=== PATIENT | male | born 1975 | race Caucasian/White ===

== ENCOUNTER 2019-11-06 06:08 | Inpatient (IN) | payer BC ==
[~2019-11-06] VITALS: Ht 189.2 cm; Wt 109.9 kg
[2019-11-06 06:24] LABS: BASOPHILS # (AUTO) 0.1 X10'3 (0-0.2); BASOPHILS % (AUTO) 0.5 % (0-1); EOSINOPHILS % (AUTO) 0.2 % (0-6); HEMATOCRIT 48.3 % (42.0-52.0); HEMOGLOBIN 16.3 g/dl (14.0-17.9); LYMPHOCYTES # (AUTO) 1.5 X10'3 (1.1-4.8); LYMPHOCYTES % (AUTO) 6.8 % (21-51); MEAN CORPUSCULAR HEMOGLOBIN 31.1 PG (27.0-31.0); MEAN CORPUSCULAR HGB CONC 33.7 g/dL (33.0-36.5); MEAN CORPUSCULAR VOLUME 92.1 FL (78-98); MEAN PLATELET VOLUME 7.9 FL (7.4-10.4); MONOCYTES # (AUTO) 1.1 X10'3 (0-0.9); MONOCYTES % (AUTO) 5.2 % (2-12); NEUTROPHILS % (AUTO) 87.3 % (42-75); PLATELET COUNT 253 X10'3 (140-440); RED BLOOD COUNT 5.24 X10'6 (4.70-6.10); RED CELL DISTRIBUTION WIDTH 13.1 % (11.5-14.5); WHITE BLOOD COUNT 21.8 X10'3 (4.5-11.0)
[2019-11-06] MEDS ORDERED: metoclopramide 5 mg/ml inj IV ONE (06:25)
[2019-11-06] MEDS ORDERED: morphine 4 MG/ML inj SYRINge IV ONE (06:25)
[2019-11-06] MEDS ORDERED: diphenhydrAMINE 50 mg/ml inj IV ONE (06:25)
[2019-11-06] MEDS ORDERED: normal saline 1000ML IV soln IVB ONE ×2 (06:25)
[2019-11-06 06:37] LABS: ALANINE AMINOTRANSFERASE 73 U/L (12-78); ALBUMIN 4.1 G/DL (3.4-5.0); ALBUMIN/GLOBULIN RATIO 1.5 (1.1-1.5); ALKALINE PHOSPHATASE 53 IU/L (46-116); ANION GAP 6 (8-16); ASPARTATE AMINO TRANSFERASE 28 U/L (10-37); BILIRUBIN,TOTAL 0.2 MG/DL (0.1-1.0); BLOOD UREA NITROGEN 13 MG/DL (7-18); BUN/CREATININE RATIO 9.7 (5.4-32.0); CALCIUM 11.1 MG/DL (8.5-10.1); CHLORIDE 103 MMOL/L (99-107); CREATININE 1.34 MG/DL (0.60-1.10); GLUCOSE 175 MG/DL (70-104); SODIUM 136 MMOL/L (135-145); TOTAL PROTEIN 6.8 G/DL (6.4-8.2); eGFR 58 ML/MIN
[2019-11-06 06:41] LABS: POTASSIUM 4.6 MMOL/L (3.5-5.1)
[2019-11-06] MEDS ORDERED: ceFOXitin 2 GM ADDvantage bag 100 ML IV ONE (06:45)
[2019-11-06] MEDS ORDERED: ceFOXitin sod/dextrose 2g/50ml 50 ML IV ONE (06:50)
[2019-11-06 06:53] LABS: LIPASE 7220 U/L (73-393)
[2019-11-06 07:54] LABS: CHOL/HDL RATIO 8.4 (0.00-4.99); CHOLESTEROL 135 MG/DL (0-200); HDL CHOLESTEROL 16 MG/DL (35-60); LDL CHOLESTEROL 66 MG/DL (50-100); TRIGLYCERIDES 364 MG/DL (20-135); TROPONIN I < 0.04 NG/ML (0.0-0.05)
[2019-11-06 08:07] LABS: CLARITY,URINE CLEAR (Clear); COLOR,URINE YELLOW (Yellow); GLUCOSE, URINE NEGATIVE (Neg); KETONES,URINE NEGATIVE (Neg); LEUKOCYTE ESTERASE ,URINE NEGATIVE (Neg); NITRITES, URINE NEGATIVE (Neg); OCCULT BLOOD,URINE TRACE-INTACT (Neg); PH,URINE 5.5 (4.8-8.0); PROTEIN,URINE NEGATIVE (Neg); UROBILINOGEN,URINE 0.2 E.U/dL (0.2-1.0)
[2019-11-06] MEDS ORDERED: NO HOME MEDS (08:18)
[2019-11-06 08:23] LABS: UA COLLECTION TYPE URINAL
[2019-11-06 08:24] LABS: BACTERIA,URINE NONE SEEN /HPF (Neg); MUCUS STRANDS NONE SEEN /LPF (Neg); RBC,URINE 0-2 /HPF (0-2); SQUAMOUS EPITHELIAL CELL,UR FEW /LPF (FEW); WBC,URINE 0-4 /HPF (0-4)
[2019-11-06] MEDS: morphine 4 MG/ML inj SYRINge IV PRN ×2 (08:45→11:19)
[2019-11-06] MEDS ORDERED: potassium CL 10mEq/100ml bag 100 ML IV PRN ×2 (09:00)
[2019-11-06] MEDS ORDERED: morphine 2 MG/ML inj. syringe IV PRN (09:00)
[2019-11-06] MEDS ORDERED: diphenhydrAMINE 25mg capsule PO PRN (09:00)
[2019-11-06] MEDS ORDERED: magnesium 2GM in 50ml NS 50 ML IV PRN (09:00)
[2019-11-06] MEDS ORDERED: metoclopramide 5 mg/ml inj IV PRN (09:00)
[2019-11-06] MEDS ORDERED: acetaminophen 650mg rectal suppository RC PRN (09:00)
[2019-11-06] MEDS ORDERED: mag hydrox/Alum hydrox/simeth 30ml oral suspension PO PRN (09:00)
[2019-11-06] MEDS ORDERED: magnesium Cl slow-release 64mg tablet PO PRN (09:00)
[2019-11-06] MEDS ORDERED: acetaminophen 325mg tablet PO PRN (09:00)
[2019-11-06] MEDS ORDERED: bisacodyl 10mg suppository rectal RC PRN (09:00)
[2019-11-06] MEDS ORDERED: potassium Cl 20 mEq SR tablet PO PRN ×2 (09:00)
[2019-11-06] MEDS ORDERED: diphenhydrAMINE 50 mg/ml inj IV PRN (09:00)
[2019-11-06] MEDS ORDERED: HYDROcodone/acetaminophen 10/325mg tab PO PRN (09:00)
[2019-11-06] MEDS ORDERED: HYDROcodone/acetaminophen 5mg/325mg tablet PO PRN (09:00)
[2019-11-06] MEDS ORDERED: magnesium 4gm in 100ml NS 100 ML IV PRN (09:00)
[2019-11-06] MEDS ORDERED: magnesium hydroxide 30ml (MOM) UD suspension PO PRN (09:00)
[2019-11-06] MEDS ORDERED: ondansetron/PF 4mg/2ml inj IV PRN (09:00)
[2019-11-06] MEDS: fenofibrate 145mg tablet PO SCH (09:10)
[2019-11-06] MEDS: dextrose 5%-normal saline 1,000 ML IV SCH ×2 (09:15→19:55)
[2019-11-06 09:36] LABS: HEMOGLOBIN A1C 5.6 % (4.5-6.2)
[2019-11-06 09:45] LABS: ETHANOL < 0.010 GM/DL (0.0-0.010)
--- NOTE | 2019-11-06 13:48 | NUR ---
Patient in room [facility]. I have received report from AYSHA PEREZ IN ER and had the opportunity to ask questions and assume patient care.
[2019-11-06 14:03] VITALS: BP 123/83
[2019-11-06] MEDS: levoFLOXACIN-Levaquin 750MG/D5 150 ML IV SCH (16:51)
--- NOTE | 2019-11-06 18:30 | NUR ---
Problems reprioritized. Patient report given, questions answered & plan of care reviewed with AYSHA DE LEÓN.
--- NOTE | 2019-11-06 18:53 | NUR ---
Patient in room [facility] 340. I have received report from Raquel OLMSTEAD and had the opportunity to ask questions and assume patient care.
[2019-11-06 19:00] VITALS: BP 111/68
[2019-11-06] MEDS: omega-3 acid ethyl esters 1GM capsule PO SCH (19:54)
[2019-11-06] MEDS: morphine 2 MG/ML inj. syringe IV PRN (19:58)
[2019-11-06] MEDS: K and/or MAG REPLACEMENT MC SCH (20:00)
[2019-11-06] MEDS: metroNIDAZOLE-Flagyl 500mg/NS 100 ML IV SCH ×2 (20:03→23:47)
[2019-11-06] MEDS: heparin, porcine 5000 units/ml vial SQ SCH (20:09)
[2019-11-06] MEDS: pantoprazole 40 MG vial IV SCH (22:32)
[2019-11-06] MEDS: acetaminophen 325mg tablet PO PRN (22:32)
--- NOTE | 2019-11-06 22:39 | NUR ---
Patient states that he has a DRUMMOND now since taking the morphine. Gave tylenol hoping that will help.
[2019-11-07] VITALS: BP 106/69
[2019-11-07 00:44] LABS: URINE AMPHETAMINE SCREEN NEGATIVE (Neg); URINE BARBITUATE SCREEN NEGATIVE (Neg); URINE BENZODIAZEPINES SCREEN NEGATIVE (Neg); URINE CANNABINOID SCREEN NEGATIVE (Neg); URINE COCAINE SCREEN NEGATIVE (Neg); URINE METHADONE SCREEN NEGATIVE (Neg); URINE OPIATE SCREEN POSITIVE (Neg); URINE PHENCYCLIDINE SCREEN NEGATIVE (Neg)
[2019-11-07 00:47] LABS: CLARITY,URINE SLIGHTLY CLOUDY (Clear); COLOR,URINE YELLOW (Yellow); GLUCOSE, URINE NEGATIVE (Neg); KETONES,URINE NEGATIVE (Neg); LEUKOCYTE ESTERASE ,URINE NEGATIVE (Neg); NITRITES, URINE NEGATIVE (Neg); OCCULT BLOOD,URINE SMALL (Neg); PROTEIN,URINE TRACE mg/dl (Neg); UROBILINOGEN,URINE 0.2 E.U/dL (0.2-1.0)
[2019-11-07 00:57] LABS: UA COLLECTION TYPE CLN CATCH MIDSTREAM
[2019-11-07 00:59] LABS: RBC,URINE 0-2 /HPF (0-2); WBC,URINE 0-4 /HPF (0-4)
[2019-11-07 01:00] LABS: BACTERIA,URINE NONE SEEN /HPF (Neg); MUCUS STRANDS FEW /LPF (Neg); SQUAMOUS EPITHELIAL CELL,UR MODERATE /LPF (FEW)
[2019-11-07] MEDS: dextrose 5%-normal saline 1,000 ML IV SCH ×3 (01:00→17:22)
[2019-11-07] MEDS: morphine 2 MG/ML inj. syringe IV PRN ×3 (01:15→10:14)
--- NOTE | 2019-11-07 01:23 | NUR ---
Please note the reason that IV morphine is being given for pain is that patient is NPO status. The norco has narcotic in it which may upset his stomach more due to being NPO.
[2019-11-07 05:05] LABS: BASOPHILS % (AUTO) 0.1 % (0-1); EOSINOPHILS # (AUTO) 0.1 X10'3 (0-0.9); EOSINOPHILS % (AUTO) 0.7 % (0-6); HEMATOCRIT 44.6 % (42.0-52.0); HEMOGLOBIN 14.8 g/dl (14.0-17.9); LYMPHOCYTES # (AUTO) 1.3 X10'3 (1.1-4.8); MEAN CORPUSCULAR HEMOGLOBIN 30.8 PG (27.0-31.0); MEAN CORPUSCULAR HGB CONC 33.2 g/dL (33.0-36.5); MEAN CORPUSCULAR VOLUME 92.7 FL (78-98); MEAN PLATELET VOLUME 8.6 FL (7.4-10.4); MONOCYTES # (AUTO) 1.4 X10'3 (0-0.9); MONOCYTES % (AUTO) 8.9 % (2-12); NEUTROPHILS # (AUTO) 13.3 X10'3 (1.8-7.7); NEUTROPHILS % (AUTO) 82.3 % (42-75); PLATELET COUNT 178 X10'3 (140-440); RED BLOOD COUNT 4.81 X10'6 (4.70-6.10); RED CELL DISTRIBUTION WIDTH 13.2 % (11.5-14.5); WHITE BLOOD COUNT 16.2 X10'3 (4.5-11.0)
[2019-11-07 05:20] LABS: ALANINE AMINOTRANSFERASE 40 U/L (12-78); ALBUMIN/GLOBULIN RATIO 1.1 (1.1-1.5); ALKALINE PHOSPHATASE 36 IU/L (46-116); ANION GAP 6 (8-16); ASPARTATE AMINO TRANSFERASE 19 U/L (10-37); BILIRUBIN,TOTAL 0.7 MG/DL (0.1-1.0); BLOOD UREA NITROGEN 12 MG/DL (7-18); BUN/CREATININE RATIO 10.7 (5.4-32.0); CALCIUM 8.6 MG/DL (8.5-10.1); CHLORIDE 105 MMOL/L (99-107); CHOL/HDL RATIO 5.7 (0.00-4.99); CHOLESTEROL 109 MG/DL (0-200); CREATININE 1.12 MG/DL (0.60-1.10); GLUCOSE 113 MG/DL (70-104); HDL CHOLESTEROL 19 MG/DL (35-60); LDL CHOLESTEROL 64 MG/DL (50-100); MAGNESIUM 1.6 MG/DL (1.5-2.4); PHOSPHORUS 3.1 MG/DL (2.3-4.5); SODIUM 137 MMOL/L (135-145); TOTAL CARBON DIOXIDE 26.5 MMOL/L (24-32); TOTAL PROTEIN 5.7 G/DL (6.4-8.2); TRIGLYCERIDES 144 MG/DL (20-135); eGFR 71 ML/MIN
[2019-11-07 05:30] LABS: LIPASE 2832 U/L (73-393)
--- NOTE | 2019-11-07 06:49 | NUR ---
Report to Nan OLSMTEAD.
[2019-11-07] MEDS: pantoprazole 40 MG vial IV SCH ×2 (07:24→20:58)
[2019-11-07] MEDS: K and/or MAG REPLACEMENT MC SCH ×2 (07:24→20:00)
[2019-11-07] MEDS: metroNIDAZOLE-Flagyl 500mg/NS 100 ML IV SCH ×3 (07:24→23:43)
[2019-11-07] MEDS: omega-3 acid ethyl esters 1GM capsule PO SCH ×2 (07:26→20:52)
[2019-11-07] MEDS: fenofibrate 145mg tablet PO SCH (07:26)
[2019-11-07 07:30] VITALS: BP 117/71
[2019-11-07] MEDS: heparin, porcine 5000 units/ml vial SQ SCH ×2 (07:33→20:55)
[2019-11-07] MEDS: levoFLOXACIN-Levaquin 750MG/D5 150 ML IV SCH (09:09)
[2019-11-07 11:00] VITALS: BP 119/76
[2019-11-07] MEDS ORDERED: HYDROmorphone inj. 0.5 MG/0.5 ML DISP.SYRIN IV PRN (15:05)
[2019-11-07] MEDS: HYDROmorphone 1 mg/ml syringe IV PRN ×4 (15:37→23:43)
--- NOTE | 2019-11-07 16:36 | NUR ---
PAGER ID: [phone] MESSAGE: James Fang 340B: patient requesting routine stool softener. thanks mario [phone]
--- NOTE | 2019-11-07 18:15 | NUR ---
Patient in room [facility]. I have received report from Nan OLMSTEAD and had the opportunity to ask questions and assume patient care.
--- NOTE | 2019-11-07 18:26 | NUR ---
Problems reprioritized. Patient report given, questions answered & plan of care reviewed with AYSHA DE LEÓN.
[2019-11-07 19:00] VITALS: BP 125/81
[2019-11-07] MEDS: polyethylene glycol 3350 17gm powd pack PO SCH (21:05)
[2019-11-08] VITALS: BP 121/70
[2019-11-08] MEDS: dextrose 5%-normal saline 1,000 ML IV SCH ×4 (01:00→23:49)
[2019-11-08] MEDS: HYDROmorphone 1 mg/ml syringe IV PRN ×10 (02:16→22:37)
[2019-11-08] MEDS: polyethylene glycol 3350 17gm powd pack PO SCH (02:16)
[2019-11-08 05:31] LABS: BASOPHILS % (AUTO) 0.2 % (0-1); EOSINOPHILS # (AUTO) 0.2 X10'3 (0-0.9); EOSINOPHILS % (AUTO) 1.2 % (0-6); HEMATOCRIT 42.3 % (42.0-52.0); HEMOGLOBIN 14.1 g/dl (14.0-17.9); LYMPHOCYTES # (AUTO) 1.2 X10'3 (1.1-4.8); LYMPHOCYTES % (AUTO) 6.6 % (21-51); MEAN CORPUSCULAR HEMOGLOBIN 30.8 PG (27.0-31.0); MEAN CORPUSCULAR HGB CONC 33.4 g/dL (33.0-36.5); MEAN CORPUSCULAR VOLUME 92.3 FL (78-98); MEAN PLATELET VOLUME 8.7 FL (7.4-10.4); MONOCYTES # (AUTO) 1.8 X10'3 (0-0.9); MONOCYTES % (AUTO) 9.5 % (2-12); NEUTROPHILS # (AUTO) 15.6 X10'3 (1.8-7.7); NEUTROPHILS % (AUTO) 82.5 % (42-75); PLATELET COUNT 180 X10'3 (140-440); RED BLOOD COUNT 4.59 X10'6 (4.70-6.10); RED CELL DISTRIBUTION WIDTH 13.2 % (11.5-14.5); WHITE BLOOD COUNT 18.9 X10'3 (4.5-11.0)
[2019-11-08 05:45] LABS: ALANINE AMINOTRANSFERASE 30 U/L (12-78); ALBUMIN/GLOBULIN RATIO 0.9 (1.1-1.5); ALKALINE PHOSPHATASE 42 IU/L (46-116); ANION GAP 9 (8-16); ASPARTATE AMINO TRANSFERASE 17 U/L (10-37); BILIRUBIN,TOTAL 0.7 MG/DL (0.1-1.0); BLOOD UREA NITROGEN 11 MG/DL (7-18); BUN/CREATININE RATIO 10.6 (5.4-32.0); CALCIUM 8.2 MG/DL (8.5-10.1); CHLORIDE 103 MMOL/L (99-107); CREATININE 1.04 MG/DL (0.60-1.10); GLUCOSE 104 MG/DL (70-104); LIPASE 471 U/L (73-393); MAGNESIUM 1.8 MG/DL (1.5-2.4); POTASSIUM 3.7 MMOL/L (3.5-5.1); SODIUM 136 MMOL/L (135-145); TOTAL CARBON DIOXIDE 24.1 MMOL/L (24-32); TOTAL PROTEIN 6.3 G/DL (6.4-8.2); eGFR 78 ML/MIN
--- NOTE | 2019-11-08 06:30 | NUR ---
Problems reprioritized. Patient report given, questions answered & plan of care reviewed with Araceli OLMSTEAD.
--- NOTE | 2019-11-08 07:03 | NUR ---
Patient in room [facility] 340. I have received report from María lEena OLMSTEAD and had the opportunity to ask questions and assume patient care.
[2019-11-08] MEDS: pantoprazole 40 MG vial IV SCH ×2 (07:32→19:17)
[2019-11-08] MEDS: metroNIDAZOLE-Flagyl 500mg/NS 100 ML IV SCH ×3 (07:32→23:49)
[2019-11-08] MEDS: levoFLOXACIN-Levaquin 750MG/D5 150 ML IV SCH (07:32)
[2019-11-08] MEDS: diatr meglu/diatrizoate 30ml oral sol.-(3 dose) bottle PO SCH ×3 (07:32→16:52)
[2019-11-08] MEDS: docusate sod 100mg capsule PO SCH ×2 (07:33→19:23)
[2019-11-08 08:00] VITALS: BP 118/72
[2019-11-08] MEDS: K and/or MAG REPLACEMENT MC SCH ×2 (08:00→20:00)
[2019-11-08] MEDS: heparin, porcine 5000 units/ml vial SQ SCH ×2 (08:00→19:17)
[2019-11-08 11:00] VITALS: BP 135/80
[2019-11-08 11:35] VITALS: BP 93/58
[2019-11-08] MEDS: fenofibrate 145mg tablet PO SCH (12:51)
[2019-11-08] MEDS: omega-3 acid ethyl esters 1GM capsule PO SCH ×2 (12:51→20:39)
[2019-11-08] MEDS: nicotine 21mg patch - 24 hr TD SCH (14:01)
[2019-11-08] MEDS ORDERED: iohexol 300mg/ml 100ml inj. ONE (16:50)
--- NOTE | 2019-11-08 18:00 | NUR ---
Patient in room [facility] 347. I have received report from Araceli OLMSTEAD and had the opportunity to ask questions and assume patient care.
--- NOTE | 2019-11-08 18:49 | NUR ---
Problems reprioritized. Patient report given, questions answered & plan of care reviewed with Carli OLMSTEAD.
[2019-11-08 19:00] VITALS: BP 132/75
[2019-11-08 23:49] VITALS: BP 134/70
[2019-11-08] MEDS: acetaminophen 325mg tablet PO PRN (23:59)
[2019-11-09] MEDS: HYDROmorphone 1 mg/ml syringe IV PRN ×4 (03:19→10:53)
[2019-11-09 05:58] LABS: BASOPHILS % (AUTO) 0.1 % (0-1); EOSINOPHILS # (AUTO) 0.2 X10'3 (0-0.9); EOSINOPHILS % (AUTO) 1.3 % (0-6); HEMATOCRIT 39.2 % (42.0-52.0); LYMPHOCYTES # (AUTO) 1.1 X10'3 (1.1-4.8); LYMPHOCYTES % (AUTO) 6.6 % (21-51); MEAN CORPUSCULAR HEMOGLOBIN 30.8 PG (27.0-31.0); MEAN CORPUSCULAR HGB CONC 33.3 g/dL (33.0-36.5); MEAN CORPUSCULAR VOLUME 92.5 FL (78-98); MEAN PLATELET VOLUME 8.6 FL (7.4-10.4); MONOCYTES # (AUTO) 1.7 X10'3 (0-0.9); MONOCYTES % (AUTO) 10.7 % (2-12); NEUTROPHILS # (AUTO) 13.1 X10'3 (1.8-7.7); NEUTROPHILS % (AUTO) 81.3 % (42-75); PLATELET COUNT 165 X10'3 (140-440); RED BLOOD COUNT 4.23 X10'6 (4.70-6.10); RED CELL DISTRIBUTION WIDTH 13.4 % (11.5-14.5); WHITE BLOOD COUNT 16.1 X10'3 (4.5-11.0)
[2019-11-09 06:18] LABS: ALBUMIN 2.6 G/DL (3.4-5.0); ALBUMIN/GLOBULIN RATIO 0.8 (1.1-1.5); ALKALINE PHOSPHATASE 43 IU/L (46-116); ANION GAP 6 (8-16); ASPARTATE AMINO TRANSFERASE 15 U/L (10-37); BILIRUBIN,TOTAL 0.6 MG/DL (0.1-1.0); BLOOD UREA NITROGEN 9 MG/DL (7-18); BUN/CREATININE RATIO 8.6 (5.4-32.0); CHLORIDE 103 MMOL/L (99-107); CREATININE 1.05 MG/DL (0.60-1.10); GLUCOSE 109 MG/DL (70-104); LIPASE 259 U/L (73-393); PHOSPHORUS 1.8 MG/DL (2.3-4.5); POTASSIUM 3.6 MMOL/L (3.5-5.1); SODIUM 135 MMOL/L (135-145); TOTAL PROTEIN 5.9 G/DL (6.4-8.2); eGFR 77 ML/MIN
--- NOTE | 2019-11-09 06:22 | NUR ---
Problems reprioritized. Patient report given, questions answered & plan of care reviewed with Elizabeth OLMSTEAD.
[2019-11-09 06:33] LABS: ALANINE AMINOTRANSFERASE 23 U/L (12-78)
--- NOTE | 2019-11-09 07:27 | NUR ---
Patient in room [facility] 347. I have received report from Carli OLMSTEAD and had the opportunity to ask questions and assume patient care.
[2019-11-09] MEDS: heparin, porcine 5000 units/ml vial SQ SCH ×2 (07:41→08:13)
--- NOTE | 2019-11-09 07:43 | NUR ---
Dr. Guardado came to see patient. Per Dr. Guardado no surgery today and patient may have clear liquid
[2019-11-09 08:00] VITALS: BP 126/72
[2019-11-09] MEDS: docusate sod 100mg capsule PO SCH ×2 (08:13→20:02)
[2019-11-09] MEDS: pantoprazole 40 MG vial IV SCH ×2 (08:13→19:55)
[2019-11-09] MEDS: fenofibrate 145mg tablet PO SCH (08:13)
[2019-11-09] MEDS: nicotine 21mg patch - 24 hr TD SCH (08:14)
[2019-11-09] MEDS: metroNIDAZOLE-Flagyl 500mg/NS 100 ML IV SCH (08:14)
[2019-11-09] MEDS: omega-3 acid ethyl esters 1GM capsule PO SCH (08:27)
--- NOTE | 2019-11-09 10:43 | NUR ---
Report given to Judd OLMSTEAD
--- NOTE | 2019-11-09 10:49 | NUR ---
Patient in room [facility] 345. I have received report from Elizabeth and had the opportunity to ask questions and assume patient care.
[2019-11-09] MEDS: levoFLOXACIN-Levaquin 750MG/D5 150 ML IV SCH (10:58)
[2019-11-09] MEDS: K and/or MAG REPLACEMENT MC SCH ×2 (11:08→19:57)
--- NOTE | 2019-11-09 11:43 | NUR ---
Judd [id number] Re: James Fang Pt is now clear liquid diet, can he start PO pain meds
[2019-11-09] MEDS: dextrose 5%-normal saline 1,000 ML IV SCH ×2 (11:50→21:48)
[2019-11-09] MEDS: HYDROcodone/acetaminophen 5mg/325mg tablet PO PRN ×3 (12:20→19:54)
[2019-11-09] MEDS: Neutra Phos packet PO SCH ×2 (12:20→20:02)
--- NOTE | 2019-11-09 13:41 | NUR ---
agree with assessment Addendum: 11/09/19 at 1341 by Judd Quintana RN Amended: Links added.
[2019-11-09] MEDS: metroNIDAZOLE 500mg tablet PO SCH (15:31)
--- NOTE | 2019-11-09 17:59 | NUR ---
Problems reprioritized. Patient report given, questions answered & plan of care reviewed with Zach.
[2019-11-09 18:00] VITALS: BP 128/70
--- NOTE | 2019-11-09 18:00 | NUR ---
Patient in room [facility] 345. I have received report from Judd OLMSTEAD and had the opportunity to ask questions and assume patient care.
[2019-11-09] MEDS: OMEGA-3/DHA/EPA/FISH OIL 1 EACH CAPSULE.DR PO SCH (19:54)
[2019-11-09] MEDS: polyethylene glycol 3350 17gm powd pack PO SCH (20:02)
[2019-11-09] MEDS ORDERED: heparin, porcine 5000 units/ml vial SQ ONE (23:55)
[2019-11-10] VITALS: BP 127/76
[2019-11-10] MEDS: metroNIDAZOLE 500mg tablet PO SCH ×3 (00:01→16:09)
[2019-11-10] MEDS: HYDROcodone/acetaminophen 5mg/325mg tablet PO PRN ×2 (00:01→21:25)
--- NOTE | 2019-11-10 05:11 | NUR ---
Patient complained of stomach discomfort, patient states " I believe that it's coming from the IV fluids I'm getting, I can feel it when I get the saline flush as well and I get shooting pain in my stomach. Please hold fluids". Fluids held for 4 hours and patient stated relief without stomach pain and discomfort. Dr. Vinh alex.
[2019-11-10 05:14] LABS: BASOPHILS % (AUTO) 0.2 % (0-1); EOSINOPHILS # (AUTO) 0.2 X10'3 (0-0.9); EOSINOPHILS % (AUTO) 1.7 % (0-6); HEMATOCRIT 38.3 % (42.0-52.0); HEMOGLOBIN 12.9 g/dl (14.0-17.9); LYMPHOCYTES # (AUTO) 1.1 X10'3 (1.1-4.8); LYMPHOCYTES % (AUTO) 7.4 % (21-51); MEAN CORPUSCULAR HEMOGLOBIN 31.2 PG (27.0-31.0); MEAN CORPUSCULAR HGB CONC 33.7 g/dL (33.0-36.5); MEAN CORPUSCULAR VOLUME 92.7 FL (78-98); MEAN PLATELET VOLUME 8.3 FL (7.4-10.4); MONOCYTES # (AUTO) 1.7 X10'3 (0-0.9); MONOCYTES % (AUTO) 11.2 % (2-12); NEUTROPHILS # (AUTO) 11.8 X10'3 (1.8-7.7); NEUTROPHILS % (AUTO) 79.5 % (42-75); PLATELET COUNT 177 X10'3 (140-440); RED BLOOD COUNT 4.14 X10'6 (4.70-6.10); RED CELL DISTRIBUTION WIDTH 13.2 % (11.5-14.5); WHITE BLOOD COUNT 14.8 X10'3 (4.5-11.0)
[2019-11-10 05:22] LABS: ALANINE AMINOTRANSFERASE 16 U/L (12-78); ALBUMIN 2.5 G/DL (3.4-5.0); ALBUMIN/GLOBULIN RATIO 0.7 (1.1-1.5); ALKALINE PHOSPHATASE 42 IU/L (46-116); ANION GAP 7 (8-16); ASPARTATE AMINO TRANSFERASE 13 U/L (10-37); BILIRUBIN,TOTAL 0.5 MG/DL (0.1-1.0); BLOOD UREA NITROGEN 8 MG/DL (7-18); BUN/CREATININE RATIO 7.2 (5.4-32.0); CALCIUM 8.4 MG/DL (8.5-10.1); CHLORIDE 102 MMOL/L (99-107); CREATININE 1.11 MG/DL (0.60-1.10); GLUCOSE 104 MG/DL (70-104); MAGNESIUM 2.1 MG/DL (1.5-2.4); PHOSPHORUS 1.8 MG/DL (2.3-4.5); POTASSIUM 3.8 MMOL/L (3.5-5.1); SODIUM 136 MMOL/L (135-145); TOTAL CARBON DIOXIDE 27.5 MMOL/L (24-32); eGFR 72 ML/MIN
[2019-11-10] MEDS: dextrose 5%-normal saline 1,000 ML IV SCH ×3 (06:56→21:09)
[2019-11-10] MEDS: docusate sod 100mg capsule PO SCH ×2 (07:43→21:06)
[2019-11-10] MEDS: fenofibrate 145mg tablet PO SCH (07:43)
[2019-11-10] MEDS: Neutra Phos packet PO SCH ×3 (07:43→21:05)
[2019-11-10] MEDS: nicotine 21mg patch - 24 hr TD SCH ×2 (07:44→10:58)
[2019-11-10] MEDS: pantoprazole 40 MG vial IV SCH ×2 (07:44→21:01)
[2019-11-10] MEDS: heparin, porcine 5000 units/ml vial SQ SCH ×2 (07:44→21:02)
[2019-11-10] MEDS: OMEGA-3/DHA/EPA/FISH OIL 1 EACH CAPSULE.DR PO SCH ×2 (07:45→21:00)
[2019-11-10 08:00] VITALS: BP 119/73
[2019-11-10] MEDS: K and/or MAG REPLACEMENT MC SCH ×2 (08:00→20:00)
[2019-11-10] MEDS: levoFLOXACIN 500mg tablet PO SCH (10:54)
[2019-11-10 11:00] VITALS: BP 116/76
[2019-11-10] MEDS ORDERED: levoFLOXACIN 750MG TABLET PO SCH (11:00)
--- NOTE | 2019-11-10 11:05 | NUR ---
Phos 1.8- patient receiving neutra phos packet supplement.
--- NOTE | 2019-11-10 11:05 | NUR ---
Patient still refusing IV fluids- states IV fluids are directly causing stomach discomfort. Will make MD aware.
--- NOTE | 2019-11-10 12:10 | NUR ---
Initial: Pt admit with gallstone pancreatitis and sepsis from cholecystitis. Lipase 7220 on admit, currently WNL. Pt with hypertriglyceridemia on admit, started on antihyperlipidemic and TG levels now at 144, almost WNL. Pt possibly to get cholecystectomy for cholecystitis with cholelithiasis per MD notes. Pt previously NPO however was advanced to clear liquid diet yesterday. PO intake up to 100% at breakfast this morning however not able to meet nutrient needs at this time given the nature of the diet. LBM 11/04. Pt receiving routine bowel care and provided first dose of PRN bowel care today. Will continue to follow closely and monitor need for nutrition intervention. Recommendations: 1) Advance to heart healthy diet as medically indicated 2) Monitor need for ONS 3) Routine bowel care 4) Wt per rx Addendum: 11/10/19 at [address] Amended: Links added.
[2019-11-10 12:14] LABS: LIPASE 211 U/L (73-393)
--- NOTE | 2019-11-10 14:21 | NUR ---
Page sent to MD Ayala PAGER ID: [phone] MESSAGE: MaryA Leoncio Ramirez- patient would like a sleep aid for tonight, also refusing IV fluids, can we d/c? Ernestina [phone]
--- NOTE | 2019-11-10 14:31 | NUR ---
MD aware of patient refusing IV fluids. Okay to chart patient refusing IV fluids.
--- NOTE | 2019-11-10 16:32 | NUR ---
Patient is still refusing to restart IV fluids.
[2019-11-10 18:00] VITALS: BP 108/69
--- NOTE | 2019-11-10 18:10 | NUR ---
Problems reprioritized. Patient report given, questions answered & plan of care reviewed with Leena OLMSTEAD.
--- NOTE | 2019-11-10 18:10 | NUR ---
Patient in room [facility] 345. I have received report from Ernestina OLMSTEAD and had the opportunity to ask questions and assume patient care.
[2019-11-10] MEDS ORDERED: ringers solution, lacted 1,000 ML IV ONE (18:20)
[2019-11-10] MEDS: polyethylene glycol 3350 17gm powd pack PO SCH (21:00)
[2019-11-10] MEDS: lactobacillus rhamnosus 10,000 MMU CELLS/CAPSULE PO SCH (21:01)
[2019-11-10] MEDS: Melatonin 3mg tablet PO SCH (21:04)
[2019-11-11] VITALS (19 sets, daily range): BP systolic 93–135; BP diastolic 49–76
[2019-11-11] MEDS: metroNIDAZOLE 500mg tablet PO SCH ×4 (00:27→22:12)
[2019-11-11] MEDS: HYDROcodone/acetaminophen 5mg/325mg tablet PO PRN ×2 (01:57→09:07)
[2019-11-11 05:20] LABS: BASOPHILS % (AUTO) 0.3 % (0-1); EOSINOPHILS # (AUTO) 0.2 X10'3 (0-0.9); EOSINOPHILS % (AUTO) 1.7 % (0-6); HEMATOCRIT 37.4 % (42.0-52.0); HEMOGLOBIN 12.5 g/dl (14.0-17.9); LYMPHOCYTES # (AUTO) 0.9 X10'3 (1.1-4.8); LYMPHOCYTES % (AUTO) 6.5 % (21-51); MEAN CORPUSCULAR HEMOGLOBIN 30.7 PG (27.0-31.0); MEAN CORPUSCULAR HGB CONC 33.3 g/dL (33.0-36.5); MEAN CORPUSCULAR VOLUME 92.3 FL (78-98); MEAN PLATELET VOLUME 8.1 FL (7.4-10.4); MONOCYTES # (AUTO) 1.6 X10'3 (0-0.9); MONOCYTES % (AUTO) 11.2 % (2-12); NEUTROPHILS # (AUTO) 11.5 X10'3 (1.8-7.7); NEUTROPHILS % (AUTO) 80.3 % (42-75); PARTIAL THROMBOPLASTIN TIME 35 SECONDS (22-32); PLATELET COUNT 198 X10'3 (140-440); RED BLOOD COUNT 4.06 X10'6 (4.70-6.10); RED CELL DISTRIBUTION WIDTH 13.2 % (11.5-14.5); WHITE BLOOD COUNT 14.3 X10'3 (4.5-11.0)
[2019-11-11 05:37] LABS: ALANINE AMINOTRANSFERASE 23 U/L (12-78); ALBUMIN 2.5 G/DL (3.4-5.0); ALBUMIN/GLOBULIN RATIO 0.7 (1.1-1.5); ALKALINE PHOSPHATASE 46 IU/L (46-116); ANION GAP 7 (8-16); ASPARTATE AMINO TRANSFERASE 15 U/L (10-37); BILIRUBIN,TOTAL 0.4 MG/DL (0.1-1.0); BLOOD UREA NITROGEN 10 MG/DL (7-18); BUN/CREATININE RATIO 9.6 (5.4-32.0); CALCIUM 8.2 MG/DL (8.5-10.1); CHLORIDE 103 MMOL/L (99-107); CREATININE 1.04 MG/DL (0.60-1.10); GLUCOSE 121 MG/DL (70-104); MAGNESIUM 2.4 MG/DL (1.5-2.4); POTASSIUM 3.6 MMOL/L (3.5-5.1); SODIUM 136 MMOL/L (135-145); TOTAL CARBON DIOXIDE 26.1 MMOL/L (24-32); eGFR 78 ML/MIN
[2019-11-11] MEDS ORDERED: famotidine 20mg tablet PO ONE (06:00)
--- NOTE | 2019-11-11 06:20 | NUR ---
Problems reprioritized. Patient report given, questions answered & plan of care reviewed with Ernestina OLMSTEAD.
[2019-11-11] MEDS: heparin, porcine 5000 units/ml vial SQ SCH ×2 (07:04→19:29)
[2019-11-11] MEDS: fenofibrate 145mg tablet PO SCH (07:04)
[2019-11-11] MEDS: lactobacillus rhamnosus 10,000 MMU CELLS/CAPSULE PO SCH ×2 (07:19→19:26)
[2019-11-11] MEDS: docusate sod 100mg capsule PO SCH ×2 (07:19→19:21)
[2019-11-11] MEDS: Neutra Phos packet PO SCH ×3 (07:20→20:56)
[2019-11-11] MEDS: OMEGA-3/DHA/EPA/FISH OIL 1 EACH CAPSULE.DR PO SCH ×2 (07:22→19:26)
[2019-11-11] MEDS: nicotine 21mg patch - 24 hr TD SCH (08:00)
[2019-11-11] MEDS: pantoprazole 40 MG vial IV SCH ×2 (08:00→19:27)
[2019-11-11] MEDS: K and/or MAG REPLACEMENT MC SCH ×2 (08:00→20:00)
[2019-11-11] MEDS: levoFLOXACIN 500mg tablet PO SCH (10:42)
[2019-11-11] MEDS ORDERED: morphine 2 MG/ML inj. syringe IV PRN (11:55)
[2019-11-11] MEDS ORDERED: hydrALAZINE 20mg/ml inj. IV PRN (11:55)
[2019-11-11] MEDS ORDERED: morphine 4 MG/ML inj SYRINge IV PRN (11:55)
[2019-11-11] MEDS ORDERED: labetalol 20mg/4ml (5mg/ml) syringe IV PRN (11:55)
[2019-11-11] MEDS ORDERED: fentaNYL/PF 50MCG/1 ML 2ML syringe IV PRN ×2 (11:55)
[2019-11-11] MEDS ORDERED: ondansetron/PF 4mg/2ml inj IV PRN (11:55)
[2019-11-11] MEDS ORDERED: ringers solution, lacted 1,000 ML IV SCH (11:55)
[2019-11-11] MEDS ORDERED: fentaNYL/PF 50MCG/1 ML 2ML syringe ONE (12:48)
[2019-11-11] MEDS ORDERED: dexamethasone sod phosphate 4mg/ml inj. ONE (12:49)
[2019-11-11] MEDS ORDERED: LIDOcaine 2% (20mg/ml) 5ml vial ONE (12:49)
[2019-11-11] MEDS ORDERED: propofol inj 20 ML IV ONE (12:49)
[2019-11-11] MEDS ORDERED: ondansetron/PF 4mg/2ml inj ONE (12:49)
[2019-11-11] MEDS ORDERED: neostigmine methylsulfate 1 MG/ML 10ml vial ONE (12:49)
[2019-11-11] MEDS ORDERED: rocuronium 10mg/ml inj IV ONE (12:49)
[2019-11-11] MEDS ORDERED: glycopyrrolate 0.2mg/ml inj ONE (12:49)
[2019-11-11] MEDS ORDERED: midazolam 2 mg/2 ml injection ONE (12:49)
[2019-11-11] MEDS ORDERED: sevoflurane 250ml liquid IH ONE (12:50)
[2019-11-11] MEDS ORDERED: BUPIVAcaine/PF 2.5 mg/ml (0.25%) 30ml vial ONE (12:59)
[2019-11-11] MEDS: dextrose 5%-normal saline 1,000 ML IV SCH ×2 (13:07→16:08)
--- NOTE | 2019-11-11 13:55 | NUR ---
RECEIVED FROM OR VIA BED ACCOMPANIED BY ANESTHESIOLOGIST DR AHN, REPORT GIVEN. 20 GAUGE PIV R AC PATENT AND RUNNING LR AT 100 ML/HR. BAND AIDS AND SMALL ISLAND DRESSING TO ABDOMEN CDI WITH ZAIDA DRAIN INTACT AND TO DRAINAGE. PT AWAKE AND ALERT AND C/O PAIN AT A LEVEL 10. SKIN PINK AND WARM, VSS, ABD SOFT, LEW.
--- NOTE | 2019-11-11 14:55 | NUR ---
TRANSPORTED TO ROOM VIA BED, REPORT GIVEN. 20 GAUGE PIV R AC PATENT AND RUNNING LR AT 100 ML/HR. BAND AIDS AND SMALL ISLAND DRESSING TO ABDOMEN CDI WITH ZAIDA DRAIN INTACT AND TO DRAINAGE. PT AWAKE AND ALERT AND C/O PAIN AT A LEVEL 15. SKIN PINK AND WARM, VSS, ABD SOFT, LEW. LEFT IN CARE OF MAINFRAME PROGRAMMER ANALYST.
--- NOTE | 2019-11-11 15:04 | NUR ---
Patient arrived from surgery. Received report from Suzi OLMSTEAD. Dressing C/D/I, ZAIDA drain draining serous sanguinous fluids.
[2019-11-11] MEDS: HYDROcodone/acetaminophen 10/325mg tab PO PRN ×2 (17:44→22:10)
--- NOTE | 2019-11-11 18:06 | NUR ---
Problems reprioritized. Patient report given, questions answered & plan of care reviewed with Danii OLMSTEAD.
[2019-11-11] MEDS ORDERED: nicotine 21mg patch - 24 hr TD ONE (19:05)
[2019-11-11] MEDS: polyethylene glycol 3350 17gm powd pack PO SCH (20:56)
[2019-11-11] MEDS: Melatonin 3mg tablet PO SCH (20:56)
--- NOTE | 2019-11-11 21:52 | NUR ---
Post op VS finished partial VS documented in Post-op VS and other portion documented under PCT vs. Addendum: 11/11/19 at 2157 by Danii Peng RN Amended: Links added.
[2019-11-12] VITALS: BP 102/64
[2019-11-12] MEDS: dextrose 5%-normal saline 1,000 ML IV SCH ×2 (02:08→14:01)
[2019-11-12 04:00] VITALS: BP 116/56
[2019-11-12] MEDS: HYDROcodone/acetaminophen 10/325mg tab PO PRN ×3 (04:45→14:13)
--- NOTE | 2019-11-12 06:20 | NUR ---
Problems reprioritized. Patient report given, questions answered & plan of care reviewed with Payton OLMSTEAD. Addendum: 11/12/19 at 0621 by Danii Peng RN Amended: Links added.
--- NOTE | 2019-11-12 06:28 | NUR ---
Patient in room [facility] 345. I have received report from AYSHA Foy and had the opportunity to ask questions and assume patient care.
[2019-11-12] MEDS: K and/or MAG REPLACEMENT MC SCH (07:19)
[2019-11-12] MEDS: Neutra Phos packet PO SCH ×2 (07:30→12:44)
[2019-11-12] MEDS: docusate sod 100mg capsule PO SCH (07:30)
[2019-11-12] MEDS: OMEGA-3/DHA/EPA/FISH OIL 1 EACH CAPSULE.DR PO SCH (07:30)
[2019-11-12] MEDS: metroNIDAZOLE 500mg tablet PO SCH (07:30)
[2019-11-12] MEDS: lactobacillus rhamnosus 10,000 MMU CELLS/CAPSULE PO SCH (07:30)
[2019-11-12] MEDS: pantoprazole 40 MG vial IV SCH (07:30)
[2019-11-12] MEDS: heparin, porcine 5000 units/ml vial SQ SCH (07:31)
[2019-11-12] MEDS: fenofibrate 145mg tablet PO SCH (07:31)
[2019-11-12] MEDS: nicotine 21mg patch - 24 hr TD SCH (07:31)
[2019-11-12 08:20] VITALS: BP 102/69
[2019-11-12 11:00] VITALS: BP 99/63
[2019-11-12] MEDS: levoFLOXACIN 500mg tablet PO SCH (11:02)
[2019-11-12 12:25] LABS: BASOPHILS % (AUTO) 0.3 % (0-1); EOSINOPHILS # (AUTO) 0.1 X10'3 (0-0.9); EOSINOPHILS % (AUTO) 0.9 % (0-6); HEMATOCRIT 38.3 % (42.0-52.0); HEMOGLOBIN 12.5 g/dl (14.0-17.9); LYMPHOCYTES # (AUTO) 1.1 X10'3 (1.1-4.8); LYMPHOCYTES % (AUTO) 8.3 % (21-51); MEAN CORPUSCULAR HEMOGLOBIN 30.2 PG (27.0-31.0); MEAN CORPUSCULAR HGB CONC 32.5 g/dL (33.0-36.5); MEAN CORPUSCULAR VOLUME 92.8 FL (78-98); MEAN PLATELET VOLUME 8.3 FL (7.4-10.4); MONOCYTES # (AUTO) 1.1 X10'3 (0-0.9); MONOCYTES % (AUTO) 8.4 % (2-12); NEUTROPHILS # (AUTO) 10.8 X10'3 (1.8-7.7); NEUTROPHILS % (AUTO) 82.1 % (42-75); PLATELET COUNT 249 X10'3 (140-440); RED BLOOD COUNT 4.13 X10'6 (4.70-6.10); RED CELL DISTRIBUTION WIDTH 13.4 % (11.5-14.5); WHITE BLOOD COUNT 13.2 X10'3 (4.5-11.0)
[2019-11-12 12:33] LABS: ALANINE AMINOTRANSFERASE 25 U/L (12-78); ALBUMIN 2.4 G/DL (3.4-5.0); ALBUMIN/GLOBULIN RATIO 0.7 (1.1-1.5); ALKALINE PHOSPHATASE 56 IU/L (46-116); ANION GAP 5 (8-16); ASPARTATE AMINO TRANSFERASE 26 U/L (10-37); BILIRUBIN,TOTAL 0.2 MG/DL (0.1-1.0); BLOOD UREA NITROGEN 11 MG/DL (7-18); BUN/CREATININE RATIO 11.5 (5.4-32.0); CALCIUM 8.1 MG/DL (8.5-10.1); CHLORIDE 104 MMOL/L (99-107); CREATININE 0.96 MG/DL (0.60-1.10); GLUCOSE 122 MG/DL (70-104); POTASSIUM 4.2 MMOL/L (3.5-5.1); SODIUM 138 MMOL/L (135-145); TOTAL PROTEIN 5.7 G/DL (6.4-8.2); eGFR 85 ML/MIN
--- NOTE | 2019-11-12 16:05 | NUR ---
Patient discharged home via friend and taken from unit via ambulation with x[facility] staff. Patient knife that was stored with security was returned to patient via security messenger after he was walked out of the building. Patient took all other belongings with him as well. Patient was alert, oriented and in no apparent distress at time of discharge. PIV removed with cannula intact. Patient discharge instructions were discussed with him and he was given time for questions and answers. Patient stated an understanding of the teaching. Patient ZAIDA drain was removed an hour prior to discharge and was doing well at time of discharge. Patient was educated on the care of the old ZAIDA site. Patient stated an understanding of this as well. Patient was given a prescription for [place] and a copy of this was placed in the chart. Addendum: 11/12/19 at 1610 by Payton Alvarado RN Patient was also given the number for Dr. Nur's office so that he could make an appointment to follow up in one week.
== END 2019-11-12 15:50 | disposition home or self-care (01) | DRG 417 ==
LOC: ER 06:09 → ED HOLD 08:59 → SUR 3N 14:13
PROVIDERS: ADMIT Family Medicine; ATTEND Family Medicine
PROC: BW211ZZ Computerized Tomography (CT Scan) of Abdomen and Pelvis using Low Osmolar Contrast (ICD-10-PCS; 2019-11-08)
PROC: 0FT44ZZ Resection of Gallbladder, Percutaneous Endoscopic Approach (ICD-10-PCS; principal; 2019-11-11 12:50)
DX: K80.10 Calculus of gallbladder with chronic cholecystitis without obstruction (principal); K65.9 Peritonitis, unspecified; K85.10 Biliary acute pancreatitis without necrosis or infection; E78.1 Pure hyperglyceridemia; F17.200 Nicotine dependence, unspecified, uncomplicated; Z82.49 Family history of ischemic heart disease and other diseases of the circulatory system; Z83.3 Family history of diabetes mellitus; Z88.0 Allergy status to penicillin
CPT/HCPCS: 99285; Z7506; Z7508; 36415; 71045; 74176; 74177; 74181; 76700; 80053; 80061; 80305; 80320; 81001; 82948; 83036; 83690; 83735; 84100; 84145; 84443; 84484; 85025; 85610; 85730; 86885; 86900; 86901; 87081; 93005; A4215; A4618; A7000; C9113; G0378; J0694; J1100; J1170; J1200; J1644; J1956; J2001; J2250; J2270; J2405; J2704; J2710; J2765; J3010; J3490; J7030; J7042; J7120; Q0163; Q9963; Q9967